=== PATIENT | male | born 1995 | race Caucasian/White ===

== ENCOUNTER 2021-09-05 14:20 | Emergency (ER) | payer OTHER ==
[~2021-09-05] VITALS: Ht 185.4 cm; Wt 77.1 kg
--- NOTE | 2021-09-06 13:40 | EKG ---
[facility] [address] [facility] [place] [id number] Signed Sinus rhythm with frequent premature ventricular complexes and premature atrial complexes Otherwise normal ECG No previous ECGs available Confirmed by FELICIA MORSE MD ([id number] on 09/06/2021 1:39:48 PM Electronically Signed By: FELICIA MORSE MD 09/06/21 1340 PATIENT NAME: DAVID NELSON Electrocardiogram DATE OF : [birth year] PHYSICIAN: FELICIA MORSE MD REPORT #: [id number] REPORT IS CONFIDENTIAL AND NOT TO BE RELEASED WITHOUT AUTHORIZATION
== END 2021-09-05 18:51 | disposition home or self-care (01) ==
LOC: ED 14:20
DX: I49.3 Ventricular premature depolarization (principal)
CPT/HCPCS: 93005; 93010; 99284-25